=== PATIENT | male | born 1990 | race Caucasian/White ===

== ENCOUNTER 2021-01-10 16:12 | Emergency (ER) | payer OTHER, SELFPAY ==
--- NOTE | ~2021-01-10 | XR_ITS ---
EXAMINATION: XR foot RT min 3V DATE: 01/10/2021 16:41 INDICATION: Pain at the base of the right fifth metatarsophalangeal joint. TECHNIQUE: Dorsoplantar, two oblique and lateral views of the right foot were obtained. COMPARISON: None. FINDINGS: Bone alignment is normal. Subtle linear lucency projecting across the lateral tuberosity at the base of the fifth metatarsal suspicious for nondisplaced fracture with mild overlying soft tissue swelling . Joint spaces are normal. IMPRESSION: 1. Subtle linear lucency suspicious for nondisplaced fracture at the lateral base of the right fifth metatarsal. Correlate for point tenderness at this location. Reviewed, dictated and finalized at location A. IMPRESSION: 1. Subtle linear lucency suspicious for nondisplaced fracture at the lateral ba se of the right fifth metatarsal. Correlate for point tenderness at this locati on.
[2021-01-10 16:22] VITALS: BP 141/86; PULSE 77; RESP 18; TEMP 37; O2SAT 100
--- NOTE | 2021-01-10 16:33 | ED.LOWEXIN ---
HPI - Extremity Injury (Lower) General Chief Complaint: Extremity Injury, Lower Stated Complaint: Right Foot has swelling and pain Time Seen by Provider: 01/10/21 16:33 Source: patient and family History of Present Illness HPI Narrative: injured lateral side of right foot one week ago while running. still continues to have pain. no edema no bruising and no open areas no deformity noted. pain with ambulation Related Data Allergies Allergy/AdvReac Type Severity Reaction Status Date / Time No Known Allergies Allergy Unverified 05/11/17 15:06 Review of Systems Review of Systems: CONSTITUTIONAL: Denies fever, chills, or sweats. EYES: Denies visual changes, redness, or discharge. ENT: Denies rhinorrhea, congestion, sore throat, or otalgia. CARDIOVASCULAR: Denies chest pain, palpitations, or edema. RESPIRATORY: Denies cough or dyspnea. GASTROINTESTINAL: Denies abdominal pain, nausea, vomiting, or diarrhea. GENITOURINARY: Denies dysuria or hematuria. SKIN: Denies rash or itching. MUSCULOSKELETAL: Denies back pain, joint pain, or myalgia. NEUROLOGIC: Denies headache, numbness, or weakness. PSYCHIATRIC: Denies anxiety or depression. [facility] Social History Social History Gender identity (if verbalized by the patient): Male Comments At time of signature, agree with nursing past medical, surgical, social and family history. There is no relevant family history pertinent to the presenting complaint Exam Narrative: GENERAL: Well-appearing, well-nourished, and in no acute distress. HEAD: Normocephalic, atraumatic. EYES: PERRLA and EOMI. ENT: Nares clear, no rhinorrhea or epistaxis. Mucous membranes moist. NECK: Supple. CHEST: Clear to auscultation. No respiratory distress. HEART: Regular rate and rhythm. No murmur heard. Normal peripheral pulses. ABDOMEN: Soft, nontender, nondistended, normal active bowel sounds. EXTREMITIES: Normal range of motion. No edema. NORMAL DP PULSE, NORMAL CAP REFILL. NORMAL SENSATION. NVI. NO TENDERNESS TO FOOT SENSATION NVI NORMAL DORSALIS PEDIS PULSE. NORMAL MOVEMETN OF ALL TOES. NORMAL CAPILLARY REFILL. NORMAL SKIN COLOR. NO SKIN LESIONS SKIN TNTACT NO CALF PAIN NO CALF TENDERNESS NOCALF SWELLING NORMAL ROM OF KNEE.KIN INTACT. NORMAL DP PULSE, NORMAL CAP REFILL. NORMAL SENSATION. SKIN: Warm, dry, no rash. NEURO: No focal deficits. Alert and oriented x3. Axel Coma Scale Eye Opening: Spontaneous 4 Axel Coma Scale Motor: Obeys Commands 6 Axel Coma Scale Verbal: Oriented 5 [place] Coma Scale Total 15 Course Vital Signs Vital signs: Vital Signs Temperature 37.0 C 01/10/21 16:22 Pulse Rate 77 01/10/21 16:22 Respiratory Rate 18 01/10/21 16:22 Blood Pressure 141/86 H 01/10/21 16:22 Pulse Oximetry 100 01/10/21 16:22 Temperature 37.0 C 01/10/21 16:22 Pulse Rate 77 01/10/21 16:22 Respiratory Rate 18 01/10/21 16:22 Blood Pressure 141/86 H 01/10/21 16:22 Pulse Oximetry 100 01/10/21 16:22 Addressed elevated BP today. Today's blood pressure higher than recommended range. 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 Currently patient denies headache, dizziness, vision changes, CP or shortness of breath. DISCUSSED WITH PATIENT, X-RAY FINDINGS AND THAT X-RAYS WERE NEGATIVE FOR FRACTURE OR DISLOCATIONS. X-RAYS CANNOT RULE OUT TENDON, LIGAMENT, OR SOFT TISSUE STRUCTURE INJURIES AND IF SYMPTOMS PERSIST OR WORSEN, FURTHER EVALUATION MAY BE WARRANTED FOR POTENTIAL IMAGING. ADVISED REST, ICE, COMPRESSION, AND ELEVATION. IF PRESCRIBED ANY MEDICATIONS, TAKE DIRECTED. IF PRESCRIBED MUSCLE RELAXERS, DO NOT DRINK ALCOHOL, DRIVE, OR OPERATE ANY HEAVY MACHINERY WHILE TAKING. INSTRUCTED ON WHEN TO F/U WITH PCP AND CRITICAL RED FLAGS S/S DISCUSSED TO WHEN TO RETURN TO THE [facility] OR GO TO THE EMERGENCY DEPARTMENT. PATIENT/FAMILY UNDERSTAND IMPORTANCE OF CLOSE OBSERVATION AND RETURNING OR GOING TO
== END 2021-01-10 17:09 | disposition home or self-care (01) ==
PROVIDERS: Emergency Provider Nurse Practitioner Family; PCP Family Medicine
DX: S90.31XA Contusion of right foot, initial encounter (principal); S92.901A Unspecified fracture of right foot, initial encounter for closed fracture; X50.3XXA Overexertion from repetitive movements, initial encounter; Y93.02 Activity, running
CPT/HCPCS: 73630; 99203; G0463